=== PATIENT | female | born 2000 | race African-American/Black ===

== ENCOUNTER 2018-05-27 09:17 | Emergency (ER) | payer SELFPAY ==
[2018-05-27] MEDS ORDERED: NA CHLORIDE 0.9% 1,000 ML ONE (10:22)
[2018-05-27 10:34] LABS: Potassium 3.6 mmol/L (3.5-5.1)
[2018-05-27 10:37] LABS: Absolute Lymphocytes (CBC) 1.2 K/uL (0.7-4.9); Absolute Monocytes 0.5 K/uL (0.1-1.3); Absolute Neutrophil 3.1 K/uL (1.8-8.0); Basophils % 0.5 % (0-1.3); Eosinophils % 0.6 % (0-4.4); Hematocrit 39.1 % (36.0-45.0); Lymphocytes % 24.4 % (15.3-44.8); MPV 8.4 fL (7.6-11.3); Monocytes % 11.2 % (3.3-12.3); RBC Red Blood Cell Count 4.64 M/uL (3.86-4.86)
--- NOTE | 2018-05-27 11:17 | ER ---
Nurse's Notes 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 Transition of bp care: patient was not received from another setting of care. Onset of symptoms was May 27, 2018 at 09:00. Risk Assessment: Do you want to hurt yourself or someone else? Patient reports no desire to harm self or others. Initial Sepsis Screen: Does the patient meet any 2 criteria? No. Patient's initial sepsis screen is negative. Does the patient have a suspected source of infection? No. Patient's initial sepsis screen is negative. Care prior to arrival: Glucose check: 128. 09:28 Method Of Arrival: EMS: [facility] bp 09:28 Acuity: ANGELICA 3 bp Triage Assessment: :31 General: Appears in no apparent distress. comfortable, slender, Behavior is calm, bp cooperative, appropriate for age. Pain: Denies pain. EENT: No deficits noted. Neuro: Level of Consciousness is awake, alert, obeys commands, Oriented to person, place, time, situation, Appropriate for age Reports a syncopal episode. Cardiovascular: No deficits noted. Respiratory: Airway is patent Respiratory effort is even, unlabored, Respiratory pattern is regular, symmetrical. GI: No signs and/or symptoms were reported involving the gastrointestinal system. : No signs and/or symptoms were reported regarding the genitourinary system. Derm: No deficits noted. Musculoskeletal: Circulation, motion, and sensation intact. Range of motion: intact in all extremities. 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 - Social history:: Smoking status: Patient/guardian denies using tobacco. - Ebola Screening: : Patient negative for fever greater than or equal to 101.5 degrees Fahrenheit, and additional compatible Ebola Virus Disease symptoms Patient denies exposure to infectious person Patient denies travel to an Ebola-affected area in the 21 days before illness onset No symptoms or risks identified at this time. Screenin:34 Abuse screen: Denies threats or abuse. Denies injuries from another. Nutritional bp screening: No deficits noted. Tuberculosis screening: No symptoms or risk factors identified. Fall Risk Fall in past 12 months (25 points). No secondary diagnosis (0 pts). No IV (0 pts). Ambulatory Aid- None/Bed Rest/Nurse Assist (0 pts). Gait- Normal/Bed Rest/Wheelchair (0 pts) Mental Status- Oriented to own ability (0 pts). Total Paulino Fall Scale indicates Low Risk Score (25-44 pts). Fall prevention measures have been instituted. Side Rails Up X 2 Placed close to Nursing Station Frequent Obs/Assesments occuring Family Present and informed to notify staff if they need to leave bedside As available Patient and Family Educated on Fall Prevention Program and strategies. Assessment: 09:34 General: SEE TRIAGE NOTE. PT DENIES PAIN OR TRAUMA. bp 10:30 Reassessment: IVF INFUSING. PT DENIES ACUTE S/S AT THIS TIME. bp Vital Signs: 09:31 BP 105 / 87; Pulse 80; Resp 14; Temp 98; Pulse Ox 100% ; Weight 67.13 kg; Height 5 ft. bp 11 in. (180.34 cm); 10:03 BP 100 / 66 Supine; Pulse 67; Resp 16; Pulse Ox 100% on R/A; dh3 10:05 BP 110 / 82 Sitting; Pulse 80; Resp 17; Pulse Ox 98% on R/A; dh3 10:07 BP 113 / 83 Standing; Pulse 86; Resp 18; Pulse Ox 100% on R/A; dh3 10:29 BP 113 / 83; Pulse 71; Resp 14; Pulse Ox 100% ; bp 09:31 Body Mass Index 20.64 (67.13 kg, 180.34 cm) bp ED Course: 09:28 Patient arrived in ED. bp 09:30 Triage completed. bp 09:31 Arm band placed on right wrist. bp 09:33 Cholo Vázquez PA is PHCP. jr8 09:33 Maximiliano Olivo MD is Attending Physician. jr8 09:34 Patient has correct armband on for positive identification. Fall risk band placed. Bed bp in low position. Call light in reach. Side rails up X2. 10:01 Initial lab(s) drawn, by me, sent to lab. Inserted saline lock: 22 gauge in right [facility] antecubital area, using aseptic technique. Blood collected. 10:04 EKG done, by information technology internship. reviewed by Cholo BEE. at1 10:08 Ollie Maria, RN is Primary Nurse. bp 11:24 Urine collected: clean catch specimen, quynh colored. [facility] 11:25 No provider procedures requiring assistance completed. IV discontinued, intact, jl7 bleeding controlled, No redness/swelling at site. Pressure dressing applied. Administered Medications: 10:00 Drug: NS 0.9% 1000 ml Route: IV; Rate: 1000 ml; Site: right antecubital; bp Point of Care Testing: Blood Glucose: 09:31 Blood Glucose: 128 mg/dL; bp Ranges: Outcome: 11:16 Discharge ordered by . asa 11:25 Discharged to home ambulatory. 7 11:25 Condition: stable 11:25 Discharge instructions given to patient, family, Instructed on discharge instructions, follow up and referral plans. Demonstrated understanding of instructions, follow-up care. 11:26 Patient left the ED. jl7 Signatures: Cholo Vázquez PA PA jr8 Umu Dacosta, fbi profiler EKG Tat1 Jonah Fine, RN RN jl7 Magda Mitchell [facility] Ollie Maria, RN RN bp
--- NOTE | 2018-05-27 11:18 | EDPHYS ---
Physician Documentation [facility] Name: Isi Fry Age: 17 yrs Sex: Female : 2000 Arrival Date: 05/27/2018 Time: 09:28 Bed 8 Private MD: ED Physician Maximiliano Olivo HPI: 05/27 09:44 This 17 yrs old Female presents to ER via EMS with complaints of Syncope. jr8 09:44 The patient has experienced syncope. Onset: The symptoms/episode began/occurred jr8 acutely, today. Duration: This was a single episode. Context: the episode(s) was witnessed, by co-worker(s), occurred at work, occurred while the patient was walking, Just prior to the episode the patient experienced dizziness, lightheadedness. Associated injury: The patient did not suffer any apparent associated injury. Associated signs and symptoms: Pertinent positives: vaginal bleeding. Current symptoms: Currently, the patient is not experiencing any symptoms. The patient has not experienced similar symptoms in the past. The patient has not recently seen a physician. Patient approximately 8 weeks . Recent diagnosis of UTI. Has had mild spotting because of it. Was at work today and got up to move around. Became dizzy and then passed out. Lasted only for a few seconds. Brought in by EMS at that time. Currently without any complaint . 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 - Social history:: Smoking status: Patient/guardian denies using tobacco. - Ebola Screening: : Patient negative for fever greater than or equal to 101.5 degrees Fahrenheit, and additional compatible Ebola Virus Disease symptoms Patient denies exposure to infectious person Patient denies travel to an Ebola-affected area in the 21 days before illness onset No symptoms or risks identified at this time. ROS: 11:14 Eyes: Negative for injury, pain, redness, and discharge, ENT: Negative for injury, jr8 pain, and discharge, Neck: Negative for injury, pain, and swelling, Cardiovascular: Negative for chest pain, palpitations, and edema, Respiratory: Negative for shortness of breath, cough, wheezing, and pleuritic chest pain, Abdomen/GI: Negative for abdominal pain, nausea, vomiting, diarrhea, and constipation, Back: Negative for injury and pain, MS/Extremity: Negative for injury and deformity, Skin: Negative for injury, rash, and discoloration. 11:14 Neuro: Positive for dizziness, syncope, Negative for altered mental status, gait disturbance, headache, numbness, seizure activity, speech changes, tingling, tinnitus, tremor, visual changes, weakness. Exam: 11:14 Eyes: Pupils equal round and reactive to light, extra-ocular motions intact. Lids and jr8 lashes normal. Conjunctiva and sclera are non-icteric and not injected. Cornea within normal limits. Periorbital areas with no swelling, redness, or edema. ENT: Nares patent. No nasal discharge, no septal abnormalities noted. Tympanic membranes are normal and external auditory canals are clear. Oropharynx with no redness, swelling, or masses, exudates, or evidence of obstruction, uvula midline. Mucous membranes moist. Neck: Trachea midline, no thyromegaly or masses palpated, and no cervical lymphadenopathy. Supple, full range of motion without nuchal rigidity, or vertebral point tenderness. No Meningismus. Cardiovascular: Regular rate and rhythm with a normal S1 and S2. No gallops, murmurs, or rubs. Normal PMI, no JVD. No pulse deficits. Respiratory: Lungs have equal breath sounds bilaterally, clear to auscultation and percussion. No rales, rhonchi or wheezes noted. No increased work of breathing, no retractions or nasal flaring. Abdomen/GI: Soft, non-tender, with normal bowel sounds. No distension or tympany. No guarding or rebound. No evidence of tenderness throughout. Back: No spinal tenderness. No costovertebral tenderness. Full range of motion. Skin: Warm, dry with normal turgor. Normal color with no rashes, no lesions, and no evidence of cellulitis. MS/ Extremity: Pulses equal, no cyanosis. Neurovascular intact. Full, normal range of motion. Neuro: Awake and alert, GCS 15, oriented to person, place, time, and situation. Cranial nerves II-XII grossly intact. Motor strength 5/5 in all extremities. Sensory grossly intact. Cerebellar exam normal. Normal gait. Vital Signs: 09:31 BP 105 / 87; Pulse 80; Resp 14; Temp 98; Pulse Ox 100% ; Weight 67.13 kg; Height 5 ft. bp 11 in. (180.34 cm); 10:03 BP 100 / 66 Supine; Pulse 67; Resp 16; Pulse Ox 100% on R/A; dh3 10:05 BP 110 / 82 Sitting; Pulse 80; Resp 17; Pulse Ox 98% on R/A; dh3 10:07 BP 113 / 83 Standing; Pulse 86; Resp 18; Pulse Ox 100% on R/A; dh3 10:29 BP 113 / 83; Pulse 71; Resp 14; Pulse Ox 100% ; bp 09:31 Body Mass Index 20.64 (67.13 kg, 180.34 cm) bp MDM: 09:33 Patient medically screened. jr8 11:14 Differential Diagnosis: cardiac arrhythmia, cerebrovascular accident, drug effect, jr8 emotional response, idiopathic syncope, , seizure, transient ischemic attack, vasovagal episode. Data reviewed: vital signs, nurses notes, lab test result(s), EKG. Data interpreted: Pulse oximetry: on room air is 100 %. Interpretation: normal. Counseling: I had a detailed discussion with the patient and/or guardian regarding: the historical points, exam findings, and any diagnostic results supporting the discharge/admit diagnosis, lab results, the need for outpatient follow up, a family practitioner, an OB/Gyne specialist, to return to the emergency department if symptoms worsen or persist or if there are any questions or concerns that arise at home. Response to treatment: the patient's symptoms have resolved after treatment, patient is well hydrated. 05/27 09:47 Order name: CBC with Diff; Complete Time: 11:10 05/27 09:47 Order name: Basic Metabolic Panel; Complete Time: 11:10 05/27 09:47 Order name: EKG; Complete Time: 09:48 05/27 11:22 Order name: Urine Dipstick--Ancillary (enter results) eb 05/27 09:47 Order name: Urine Test (obtain specimen); Complete Time: 11:25 05/27 09:47 Order name: Urine Dipstick-Ancillary (obtain specimen); Complete Time: 11:25 05/27 09:47 Order name: EKG - Nurse/Tech; Complete Time: 10:08 05/27 09:47 Order name: Orthostatics; Complete Time: : Administered Medications: 10:00 Drug: NS 0.9% 1000 ml Route: IV; Rate: 1000 ml; Site: right antecubital; bp Point of Care Testing: Blood Glucose: 09:31 Blood Glucose: 128 mg/dL; bp Ranges: Critical Glucose Levels:Adult <50 mg/dl or >400 mg/dl <40 mg/dl or >180 mg/dl Disposition: 05/27/18 11:16 Discharged to Home. Impression: Syncope and collapse. - Condition is Stable. - Discharge Instructions: Syncope. - Medication Reconciliation Form, Thank You Letter, Antibiotic Education, Prescription Opioid Use form. - Follow up: Private Physician; When: 1 - 2 days; Reason: Recheck today's complaints, Continuance of care, Re-evaluation by your physician. - Problem is new. - Symptoms have improved. Signatures: Dispatcher [employer] EDMS Cholo Vázquez PA PA jr8 Jonah Fine RN RN jl7 Ollie Maria RN RN bp Corrections: (The following items were deleted from the chart) 11:26 11:16 05/27/2018 11:16 Discharged to Home. Impression: Syncope and collapse. Condition jl7 is Stable. Forms are Medication Reconciliation Form, Thank You Letter, Antibiotic Education, Prescription Opioid Use. Follow up: Private Physician; When: 1 - 2 days; Reason: Recheck today's complaints, Continuance of care, Re-evaluation by your physician. Problem is new. Symptoms have improved. jr8
[2018-05-27 11:34] LABS: Urine Blood 2+ (NEG); Urine Glucose NEGATIVE (NEG); Urine Protein NEGATIVE (NEG)
--- NOTE | 2018-05-27 21:39 | EKG ---
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
== END 2018-05-27 11:26 | disposition home or self-care (01) ==
LOC: ER 09:17
DX: R55 Syncope and collapse (principal); Z3A.08 8 weeks gestation of pregnancy
CPT/HCPCS: 36415; 80048; 81003; 81025; 85025; 93005; 99284; J7030

== ENCOUNTER 2021-08-15 16:43 | Emergency (ER) | payer OTHER ==
--- OUTSIDE RECORDS SUMMARY | 2021-08-15 16:45 | XMS REPORT | Continuity of Care Document ---
:2000 Author Organization [facility] t Address [address] [place] [id number] Care Team Providers Name Role Phone Gino ALICIA, C Primary Care Physician Enmanuel RN, L Attending Clinician Unavailable Payers Payer Name Policy Type Policy Number Effective Date Expiration Date S ource Problems Condition Condition Condition Status Onset Resolution Last Treating Co mments Source Name Details Category Date Date Treatment Clinician Date Other Other Disease Active Univers general general 6-09 ity of counseling [place] and advice and advice 00 Hi dical for for Branch contracept contracept chilo chilo management management Routine Routine Disease Active Univers 5-18 it y of follow-up follow-up 00:00: Wade donovan 00 Medical Branch Anemia, Anemia, Disease Active 2020- Univers 4-27 it y of 00:00: [place] 00 Medical Branch Fibroadeno Fibroadeno Disease Active Overview : Univers ma of ma of 9-19 Formattin ity of breast, breast, 00:00: g of this [place] left left 00 note Medical might be Branch different from the original. See usg report Lump or Lump or Disease Active Univers mass in mass in 7-26 ity of breast breast 00:00: [place] 00 Medical Branch Allergies, Adverse Reactions, Alerts Allergy Allergy Status Severity Reaction(s) Onset Inactive Treating Comm ents Source Name Type Date Date Clinician No Known DA Active U 2017-04 [facility] All[facility]ie 0-26 [place] [facility] Social History Social Habit Start Date Stop Date Quantity Comments Source History SDOH University o f Alcohol Frequency [place] M edical Branch History SDOH University o f Alcohol Std [place] Medical Drinks Branch History SDOH University o f Alcohol Binge [place] [facility] al Branch Alcohol intake 2021-03-06 2021-03-06 Current University of 00:00:00 00:00:00 non-drinker of [facility] alcohol Branch (finding) Alcohol Comment 2019-09-13 2019-09-13 socially Universit y of 00:00:00 00:00:00 [facility] Tobacco use and 2018-05-18 2018-05-18 Never used Universit y of exposure 00:00:00 00:00:00 [facility] Sex Assigned At [birth year] Universit y of 00:00:00 00:00:00 [facility] Smoking Status Start Date Stop Date Source Never smoker [facility] Medications Ordered Filled Start Stop Current Ordering Indication Dosage Frequency Signature Comments Components Source Medication Medication Date Date Medication? Clinician (SIG) Name Name naya 2020-04 Yes [id number] 1{tbl} Take 1 Univers ne 0.35 mg 2-01 tablet by ity of tablet 00:00: mouth [place] 00 daily. Medical Branch Immunizations Ordered Immunization Filled Immunization Date Status Commen ts Source Name Name TDAP 2019-05-18 Completed University of 00:00:00 [facility] Meningococcal 2016-01-18 Completed University of Polysaccharide 00:00:00 [facility] (groups A, C, Y and Branc h W-135) conjugate vaccine (MCV4P) Meningococcal 2010-11-18 Completed University of Polysaccharide 00:00:00 [facility]masz (groups A, C, Y and Branc h W-135) conjugate vaccine (MCV4P) TDAP 2010-11-18 Completed University of 00:00:00 [facility] Varicella 2010-11-18 Completed University of (varivax)(chicken 00:00:00 [facility] edical pox) Branch MMR 2003-03-17 Completed University 00:00:00 [facility] MMR 1999-09-18 Completed University 00:00:00 [facility] Varicella 1999-09-18 Completed [facility] (varivax)(chicken 00:00:00 [facility] edical pox) Branch Procedures This patient has no known procedures. Encounters Start End Encounter Admission Attending Care Care Encounter Source Date/Time Date/Time Type Type Clinicians Facility Department ID 2021-07-05 2021-07-05 Telephone Enmanuel PRYOR [id number] [facility] 00:00:00 00:00:00 , Mihaela MYERS [id number] Red [id number] Wade donovan [id number] [facility] 086 Branch Results This patient has no known results.
[2021-08-15 17:25] LABS: Urine Blood Trace-intact (Negative); Urine Glucose Negative (Negative); Urine Protein Trace (Negative); Urine Specific Gravity 1.025 (1.005-1.030); Urine pH 5.5 (5.0-7.0)
[2021-08-15 17:42] LABS: Urine Specific Gravity/Preg 1.025 (1.005-1.030)
[2021-08-15] MEDS ORDERED: MORPHINE 4 MG/ML SYR ONE (17:43)
[2021-08-15 17:44] LABS: Absolute Lymphocytes (CBC) 1.1 K/uL (0.7-4.9); Hematocrit 40.4 % (36.0-45.0); Lymphocytes % 13.1 % (15.3-44.8); MPV 8.3 fL (7.6-11.3)
[2021-08-15] MEDS ORDERED: ONDANSETRON 4 MG/2 ML VIAL ONE (17:44)
[2021-08-15] MEDS ORDERED: Ringers Lactate 1,000 ML IV ONE (17:44)
[2021-08-15 18:00] LABS: Albumin 3.9 g/dL (3.4-5.0); Bilirubin Total 1.1 mg/dL (0.2-1.0); Potassium 3.7 mmol/L (3.5-5.1); Protein, Total 8.1 g/dL (6.4-8.2)
--- NOTE | 2021-08-15 18:46 | RAD REPORT ---
EXAM DESCRIPTION: CT - Abdomen Pelvis W Contrast - 08/15/2021 6:29 pm CLINICAL HISTORY: Abdominal pain/right lower quadrant pain COMPARISON: none. TECHNIQUE: Computed axial tomography of the abdomen pelvis was obtained. 100 cc Isovue-300 was admin istered intravenously. Oral contrast was not requested which limits evaluation of bowel and appendix. All CT scans are performed using dose optimization technique as appropriate and may include automated exposure control or mA/KV adjustment according to patient size. FINDINGS: Small low-density lesion within the liver too small to characterize by CT criteria Spleen, pancreas, adrenal and left kidney appear unremarkable. Several small low-density areas within the right kidney extending to the periphery. Small right renal cyst There is no evidence of diverticulitis. Limited evaluation of the appendix due to the lack of oral contrast Fluid within nondilated small bowel. An irregularly-shaped 12 millimeter right ovarian follicle likel y has recently ruptured. Minimal amount of free fluid. IMPRESSION: Several small low-density areas within the right kidney extending to the periphery may i ndicate mild pyelonephritis and should be correlated clinically and with appropriate lab values
--- NOTE | 2021-08-15 19:25 | RAD REPORT ---
EXAM DESCRIPTION: US - Abdomen Exam Limited - 08/15/2021 7:09 pm CLINICAL HISTORY: Abdominal pain. FINDINGS: The gallbladder wall is not thickened. A gallstone is not seen. Small amount of gallbladder sludge The biliary tree is normal caliber. IMPRESSION: Small amount of gallbladder sludge
[2021-08-15] MEDS ORDERED: CEFTRIAXONE 2000 MG/VIAL ONE (19:32)
--- NOTE | 2021-08-15 19:48 | EDPHYS ---
Physician Documentation [facility] Name: Isi Fry Age: 20 yrs Sex: Female : 2000 Arrival Date: 08/15/2021 Time: 16:46 Bed 5 Private MD: ED Physician Josué Moise HPI: 08/15 19:43 This 20 yrs old Black Female presents to ER via Ambulatory with complaints of Abdominal jmm Pain, Back Pain. 19:43 The patient presents with abdominal pain. Onset: The symptoms/episode began/occurred jmm gradually, 2 day(s) ago. The symptoms radiate to right back. Associated signs and symptoms: Pertinent positives: nausea. The symptoms are described as achy. This is a 20 year old female with no chronic medical conditions that presents to the ED with complaints of right upper abdominal pain which radiates to the back. Denies vomiting but states having some nausea. Denies diarrhea. . 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 - Social history:: Smoking status: Patient denies any tobacco usage or history of. ROS: 19:43 Cardiovascular: Negative for chest pain, palpitations, and edema, Respiratory: Negative jmm for shortness of breath, cough, wheezing, and pleuritic chest pain. 19:43 Constitutional: Positive for body aches, chills. 19:43 Abdomen/GI: Positive for abdominal pain, nausea. 19:43 All other systems are negative. Exam: 19:43 Constitutional: This is a well developed, well nourished patient who is awake, alert, jmm and in no acute distress. Head/Face: atraumatic. Eyes: EOMI, no conjunctival erythema appreciated ENT: Moist Mucus Membranes Neck: Trachea midline, Supple Chest/axilla: Normal chest wall appearance and motion. Cardiovascular: Regular rate and rhythm. No edema appreciated Respiratory: Normal respirations, no respiratory distress appreciated 19:43 Skin: General appearance color normal MS/ Extremity: Moves all extremities, no obvious deformities appreciated, no edema noted to the lower extremities Neuro: Awake and alert Psych: Behavior is normal, Mood is normal, Patient is cooperative and pleasant 19:43 Abdomen/GI: Inspection: abdomen appears normal, Bowel sounds: normal, Palpation: soft, mild abdominal tenderness, in the right upper quadrant. 19:43 Back: CVA tenderness, that is moderate, is noted on the right. Vital Signs: 17:08 BP 115 / 88; Pulse 105; Resp 16; Temp 100.8; Pulse Ox 100% on R/A; Weight 70.31 kg; iw Height 5 ft. 10 in. (177.80 cm); Pain 8/10; 19:58 BP 112 / 74; Pulse 71; Resp 18 S; Pulse Ox 100% on R/A; as6 17:08 Body Mass Index 22.24 (70.31 kg, 177.80 cm) iw MDM: 17:17 Patient medically screened. [facility] 19:46 Data reviewed: vital signs, nurses notes. Counseling: I had a detailed discussion with francheska the patient and/or guardian regarding: the historical points, exam findings, and any diagnostic results supporting the discharge/admit diagnosis, lab results, radiology results, the need for outpatient follow up, to return to the emergency department if symptoms worsen or persist or if there are any questions or concerns that arise at home. ED course: Patient is alert and non toxic in appearance in the ED. No signs of sepsis. CT/ua concerning for pyelonephritis. Will treat with oral abx. patient otherwise given strict return precautions. patient understood and agrees with the plan of care. . 08/15 17:21 Order name: CBC with Diff; Complete Time: 18:01 [facility] 08/15 17:21 Order name: CMP; Complete Time: 18:01 [facility] 08/15 17:21 Order name: Lipase; Complete Time: 18:01 [facility] 08/15 17:25 Order name: Urine Dipstick-Ancillary; Complete Time: 17:26 [facility] 08/15 17:33 Order name: Urine --Ancillary (enter results); Complete Time: 17:49 [facility] 08/15 18:04 Order name: CT Abd/Pelvis - IV Contrast Only; Complete Time: 18:49 [facility] 08/15 17:21 Order name: IV Saline Lock; Complete Time: 17:37 [facility] 08/15 17:21 Order name: Labs collected and sent; Complete Time: 17:38 [facility] 08/15 17:21 Order name: Urine Dipstick-Ancillary (obtain specimen); Complete Time: 17:23 [facility] 08/15 18:47 Order name: US Abdomen Limited; Complete Time: 19:35 [facility] 08/15 17:21 Order name: Urine Test (obtain specimen); Complete Time: 17:32 [facility] Administered Medications: 17:40 Drug: Zofran (Ondansetron) 4 mg Route: IVP; Site: right antecubital; 6 19:59 Follow up: Response: No adverse reaction as6 17:40 Drug: morphine 4 mg Route: IVP; Site: right antecubital; 6 19:59 Follow up: Response: No adverse reaction; RASS: Alert and Calm (0) as6 17:45 Drug: NS 0.9% 1000 ml Route: IV; Rate: 1 bolus; Site: right antecubital; 6 19:59 Follow up: Response: No adverse reaction; IV Status: Completed infusion; IV Intake: as6 1000ml 19:58 Drug: Rocephin (cefTRIAXone) 2 grams Route: IV; Rate: calculated rate; Site: right as6 forearm; 19:59 Follow up: Response: No adverse reaction; IV Status: Completed infusion; IV Intake: [id number] Disposition: 22:19 Co-signature as Attending Physician, Josué BENTLEY was immediately available on-site ms3 in the Emergency Department for consultation in the care of the patient.. Disposition Summary: 08/15/21 19:47 Discharge Ordered Location: Home [facility] Condition: Stable [facility] Diagnosis - Pyelonephritis [facility] Followup: [facility] - With: Private Physician - When: 2 - 3 days - Reason: Recheck today's complaints, Continuance of care, Re-evaluation by your physician Discharge Instructions: - Discharge Summary Sheet [facility] - Pyelonephritis, Adult [facility] Forms: - Medication Reconciliation Form [facility] - Thank You Letter [facility] - Antibiotic Education [facility] - Prescription Opioid Use [facility] Prescriptions: - cefpodoxime 200 mg Oral Tablet - take 1 tablet by ORAL route every 12 hours for 10 days with food; 20 tablet; [facility] Refills: 0, Product Selection Permitted - ondansetron 4 mg Oral tablet,disintegrating - take 1 tablet by ORAL route every 4-6 hours As needed; 20 tablet; Refills: 0, jmm Product Selection Permitted - Ultracet 37.5-325 mg Oral Tablet - take 1 tablet by ORAL route every 6 hours - for up to 5 days; do not exceed 8 jmm tablets per day.; 12 tablet; Refills: 0, Product Selection Permitted Signatures: Dispatcher [employer] Jeff Huizar PA PA jmm Williams, Irene, RN RN iw Josué Moise, DO ms3 Yonny Cardenas RN RN as6 Flaquita Live RN RN jh6
--- NOTE | 2021-08-15 19:48 | ER ---
Nurse's Notes [facility] Name: Isi Fry Age: 20 yrs Sex: Female : 2000 Arrival Date: 08/15/2021 Time: 16:46 Bed 5 Private MD: Diagnosis: Pyelonephritis Presentation: 08/15 17:08 Chief complaint: Patient states: RUQ pain, sharp radiates to back, started a couple iw days ago , denies urinary symptoms, denies n/v/d. Coronavirus screen: At this time, the client does not indicate any symptoms associated with coronavirus-19. Ebola Screen: Patient negative for fever greater than or equal to 101.5 degrees Fahrenheit, and additional compatible Ebola Virus Disease symptoms Patient denies exposure to infectious person. Patient denies travel to an Ebola-affected area in the 21 days before illness onset. No symptoms or risks identified at this time. Initial Sepsis Screen: Does the patient meet any 2 criteria? No. Patient's initial sepsis screen is negative. Does the patient have a suspected source of infection? No. Patient's initial sepsis screen is negative. Risk Assessment: Do you want to hurt yourself or someone else? Patient reports no desire to harm self or others. Onset of symptoms was August 13, 2021. 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 - Social history:: Smoking status: Patient denies any tobacco usage or history of. Screenin:23 Abuse screen: Denies threats or abuse. Nutritional screening: No deficits noted. vg1 Tuberculosis screening: No symptoms or risk factors identified. Fall Risk No fall in past 12 months (0 pts). No secondary diagnosis (0 pts). IV access (20 points). Ambulatory Aid- None/Bed Rest/Nurse Assist (0 pts). Gait- Normal/Bed Rest/Wheelchair (0 pts) Mental Status- Oriented to own ability (0 pts). Total Paulino Fall Scale indicates No Risk (0-24 pts). Assessment: 17:25 General: Appears uncomfortable, Behavior is calm, cooperative. Pain: Complains of pain vg1 in right upper quadrant and right lower quadrant Pain currently is 8 out of 10 on a pain scale. Pain began 2-3 days ago. Neuro: Level of Consciousness is awake, alert, obeys commands, Oriented to person, place, time, situation. Cardiovascular: Patient's skin is warm and dry. Respiratory: Airway is patent Respiratory effort is even, unlabored. GI: Abdomen is flat, non-distended, Bowel sounds present X 4 quads. Abdomen is tender to palpation in right upper quadrant and right lower quadrant Patient currently denies diarrhea, nausea, vomiting. : Denies burning with urination, urinary frequency. EENT: No signs and/or symptoms were reported regarding the EENT system. Derm: Skin is intact, is healthy with good turgor. Musculoskeletal: Circulation, motion, and sensation intact. 18:40 Reassessment: Patient appears in no apparent distress at this time. No changes from vg1 previously documented assessment. Patient and/or family updated on plan of care and expected duration. Pain level reassessed. Patient is alert, oriented x 3, equal unlabored respirations, skin warm/dry/pink. Vital Signs: 17:08 BP 115 / 88; Pulse 105; Resp 16; Temp 100.8; Pulse Ox 100% on R/A; Weight 70.31 kg; iw Height 5 ft. 10 in. (177.80 cm); Pain 8/10; 19:58 BP 112 / 74; Pulse 71; Resp 18 S; Pulse Ox 100% on R/A; as6 17:08 Body Mass Index 22.24 (70.31 kg, 177.80 cm) iw ED Course: 16:46 Patient arrived in ED. mr 17:05 Jeff Still PA is PHCP. jmm 17:05 Josué Moise DO is Attending Physician. [facility] 17:09 Triage completed. iw 17:10 Arm band placed on. iw 17:21 Felicitas Abebe, RN is Primary Nurse. vg1 17:31 Patient has correct armband on for positive identification. Bed in low position. Call mh5 light in reach. Side rails up X 1. Warm blanket given. Pulse ox on. NIBP on. 17:38 CBC with Diff Sent. mb7 17:38 CMP Sent. mb7 17:38 Lipase Sent. mb7 17:38 Inserted saline lock: 20 gauge in right forearm, using aseptic technique. mb7 18:23 No provider procedures requiring assistance completed. vg1 18:31 CT Abd/Pelvis - IV Contrast Only In Process Unspecified. EDMS 19:11 US Abdomen Limited In Process Unspecified. EDMS 19:22 Primary Nurse role handed off by Felicitas Abebe, ROBERTO mw2 19:22 Lisbet Juarez, ROBERTO is Primary Nurse. kd3 20:06 IV discontinued, intact, bleeding controlled, No redness/swelling at site. Pressure as6 dressing applied. Administered Medications: 17:40 Drug: Zofran (Ondansetron) 4 mg Route: IVP; Site: right antecubital; jh6 19:59 Follow up: Response: No adverse reaction as6 17:40 Drug: morphine 4 mg Route: IVP; Site: right antecubital; jh6 19:59 Follow up: Response: No adverse reaction; RASS: Alert and Calm (0) as6 17:45 Drug: NS 0.9% 1000 ml Route: IV; Rate: 1 bolus; Site: right antecubital; jh6 19:59 Follow up: Response: No adverse reaction; IV Status: Completed infusion; IV Intake: as6 1000ml 19:58 Drug: Rocephin (cefTRIAXone) 2 grams Route: IV; Rate: calculated rate; Site: right as6 forearm; 19:59 Follow up: Response: No adverse reaction; IV Status: Completed infusion; IV Intake: [id number] Medication: 18:23 VIS not applicable for this client. vg1 Intake: 19:59 IV: 1000ml; Total: 1000ml. as6 19:59 IV: 10ml; Total: 1010ml. as6 Outcome: 19:47 Discharge ordered by . francheska 20:02 Discharged to home ambulatory. as6 20:02 Condition: stable 20:02 Discharge instructions given to patient, Instructed on discharge instructions, follow up and referral plans. medication usage, Demonstrated understanding of instructions, follow-up care, medications, Prescriptions given X 3. 20:06 Patient left the ED. as6 Signatures: Dispatcher [employer] EDMS Jeff Still PA PA jmm Rivera, Mary mr Williams, Irene, RN RN Susana Coon 5 Rob, Marjorie mw2 Felicitas Abebe, RN RN vg1 Yonny Cardenas, RN RN as6 Lisbet Juarez, RN RN kd3 Flaquita Live, RN RN jh6 Brenda, Ruthy mb7 Corrections: (The following items were deleted from the chart) 18:40 18:23 General: Appears uncomfortable, Behavior is calm, cooperative, vg1 vg1 18:40 18:23 Pain: Complains of pain in right upper quadrant and right lower quadrant Pain vg1 currently is 8 out of 10 on a pain scale. Pain began 2-3 days ago. vg1 18:40 18:23 Neuro: Level of Consciousness is awake, alert, obeys commands, Oriented to vg1 person, place, time, situation, vg1 18:40 18:23 Cardiovascular: Patient's skin is warm and dry. vg1 vg1 18:40 18:23 Respiratory: Airway is patent Respiratory effort is even, unlabored, vg1 vg1 18:40 18:23 GI: Abdomen is flat, non-distended, Bowel sounds present X 4 quads. Abdomen is vg1 tender to palpation in right upper quadrant and right lower quadrant Patient currently denies diarrhea, nausea, vomiting, vg1 18:40 18:23 : Denies burning with urination, urinary frequency, vg1 vg1 18:40 18:23 EENT: No signs and/or symptoms were reported regarding the EENT system. vg1 vg1 18:40 18:23 Derm: Skin is intact, is healthy with good turgor, vg1 vg1 18:40 18:23 Musculoskeletal: Circulation, motion, and sensation intact. vg1 vg1
[2021-08-16 02:11] VITALS: TEMP 100.8; O2SAT 100
[2021-08-16 02:12] VITALS: BP 112/74
== END 2021-08-15 20:06 | disposition home or self-care (01) ==
LOC: ER 16:43
DX: N12 Tubulo-interstitial nephritis, not specified as acute or chronic (principal); R11.0 Nausea
CPT/HCPCS: 85025; 36415; 81025; 81003; 83690; 80053; 74177; 76705; 99284; Q9967; J7120; J2405; J0696

== ENCOUNTER 2023-02-06 07:50 | Emergency (ER) | payer SELFPAY ==
--- OUTSIDE RECORDS SUMMARY | 2023-02-06 07:53 | XMS REPORT | Continuity of Care Document ---
:2000 Author Organization [facility] t Address [address] [place] [address] Care Team Providers Name Role Phone Dariela Abraham Primary Care Physician Enmanuel MEJIA, Mihaela Michel Attending Clinician Unavailable Provider, Jack Temp Attending Clinician Unavailable Diana Higuera Attending Clinician [phone] DIANA JOINER Attending Clinician Unavailable Doctor Unassigned, [place] Attending Clinician Unavailable Dariela Abraham Attending Clinician [phone] DARIELA CHARLES Attending Clinician Unavailable Payers Payer Name Policy Type Policy Number Effective Date Expiration Date Stacey machado [facility] [id number] 2018 00:00:00 Problems Condition Condition Condition Status Onset Resolution Last Treating Co mments Source Name Details Category Date Date Treatment Clinician Date Other Other Disease Active 2019-0 Univers general general 6-09 [place] of counseling [place] advice and advice 00 [place] dical for for Branch contracept contracept chilo chilo management management Routine Routine Disease Active Univers 5-18 [place] of follow[place] [facility] [place] Anemia, Anemia, Disease Active Univers 4-27 it y of 00:00: [place] 00 [facility] Branch Fibroadeno Fibroadeno Disease Active Overview : Univers ma of ma of 9-19 Formattin ity of breast, breast, 00:00: g of this [place] left left 00 note Medical might be Branch different from the original. See usg report Lump or Lump or Disease Active [facility] mass in mass in - ity of breast breast 00:00: [address] Branch Allergies, Adverse Reactions, Alerts Allergy Allergy Status Severity Reaction(s) Onset Inactive Treating Comm ents Source Name Type Date Date Clinician No Known DA Active U 2017-04 [facility] 0- [place] [facility] Social History Social Habit Start Date Stop Date Quantity Comments Source Sexual orientation Univer sity of [facility] History SDIL University o f Alcohol Frequency [facility] edical Branch History [facility] University o f Alcohol Std Drinks [facility] History [facility] o f Alcohol Binge [facility] al [place] Exposure to 2021-02-04 2021-03-06 Not sure University of SARS-CoV-2 (event) 00:00:00 10:05:00 [facility] Alcohol intake 2019-12-06 2019-12-06 Current University of 00:00:00 00:00:00 non-drinker of [facility] alcohol Branch (finding) History of Social 2019-09-13 2019-09-13 Univers ity of function 00:00:00 00:00:00 [facility] Alcohol Comment 2019-09-13 2019-09-13 socially Universit y of 00:00:00 00:00:00 [facility] Tobacco use and 2018-05-18 2018-05-18 Smokeless Universit y of exposure 00:00:00 00:00:00 tobacco non-user [facility] dical [place] Sex Assigned At [birth year] Universit y of 00:00:00 00:00:00 [facility] Smoking Status Start Date Stop Date Source Never smoked tobacco [facility] Medications Ordered Filled Start Stop Current Ordering Indication Dosage Frequency Signature Comments Components Source Medication Medication Date Date Medication? Clinician (SIG) Name Name naya 2020-04 Yes [id number] 1{tbl} Take 1 Univers ne 0.35 mg 2-01 tablet by ity of tablet 00:00: mouth [place] 00 daily. Medical Branch Immunizations Ordered Immunization Filled Date Status Comments Sour ce Name Immunization Name TDAP 2019-05-18 Completed University of 00:00:00 [facility] Meningococcal 2016-01-18 Completed University of Polysaccharide 00:00:00 [place] Medi tomasz (groups A, C, Y and Branc h W-135) conjugate vaccine (MCV4P) Meningococcal 2010-11-18 Completed University of Polysaccharide 00:00:00 [facility] tomasz (groups A, C, Y and Branc h W-135) conjugate vaccine (MCV4P) TDAP 2010-11-18 Completed University of 00:00:00 [facility] Varicella 2010-11-18 Completed University of (varivax)(chicken 00:00:00 [place] M edical pox) Branch MMR 2003-03-17 Completed University of 00:00:00 [facility] MMR 1999-09-18 Completed University of 00:00:00 [facility] Varicella 1999-09-18 Completed University of (varivax)(chicken 00:00:00 [facility] edical pox) Branch TDAP Unknown Completed [facility] Meningococcal Unknown Completed University Polysaccharide [facility] (groups A, C, Y and Branc h W-135) conjugate vaccine (MCV4P) Meningococcal Unknown Completed [facility] Polysaccharide [facility] (groups A, C, Y and Branc h W-135) conjugate vaccine (MCV4P) MMR Unknown Completed [facility] MMR Unknown Completed [facility] TDAP Unknown Completed [facility] Varicella Unknown Completed University of (varivax)(chicken [place] M edical pox) Branch Varicella Unknown Completed University of (varivax)(chicken [place] M edical pox) Branch Procedures This patient has no known procedures. Encounters Start End Encounter Admission Attending Care Care Encounter Source Date/Time Date/Time Type Type Clinicians Facility Department ID 2021-01-31 Outpatient [facility] [id number] Univers 19:01:45 ity of [facility] 2021-07-05 2021-07-05 Ole PRYOR [id number] Univers 00:00:00 00:00:00 Management , Mihaela L MYERS [id number] [id number] [phone] [place] [id number] [place] 2021-07-05 2021-07-05 Telephone Singer ROYA [id number] Univers 00:00:00 00:00:00 , Mihaela RICARDOY [id number] [id number] [phone] [place] [id number] [place] 2021-03-06 2021-03-06 Office Provider, Jack [facility] 1 [id number] Univers 09:22:40 10:40:49 Visit Diana Joiner LOW HEEL BUILDER [id number] ity of [facility] [id number] [place] as MATERNAL [phone] Med ical & CHILD [address] [place] [address] 2021-03-06 2021-03-06 [facility] [id number] Univers 09:15:00 10:40:49 DIANA vides [facility] 2021-03-06 2021-03-06 [facility] [id number] Univers 09:15:00 09:15:00 DIANA de la paz o [facility] 2021-03-06 2021-03-06 Telephone [facility] [id number] Univers 00:00:00 00:00:00 Diana Vides LOW HEEL BUILDER [id number] ity of [facility] [id number] [place] MATERNAL [phone] [facility] ical & CHILD [address] [place] [address] 2021-03-06 2021-03-06 Orders Doctor CARDENAS [id number] Univers 00:00:00 00:00:00 Only Unassigned, BHARATHI [id number] ity of [place] [facility] [id number] [place] as [phone] [facility] 009 Branch 2021-02-12 2021-02-12 Patient Gino [facility] [id number] Univers 00:00:00 00:00:00 Secure Msg Dariela C LOW HEEL BUILDER [id number] ity of [facility] [id number] [place] MATERNAL [phone] [facility] ical & CHILD [address] [place] [address] 2020-12-02 2020-12-02 Refill Gion, [facility] [id number] Univers 00:00:00 00:00:00 Dariela C LOW HEEL BUILDER [id number] ity of [facility] [id number] [place] MATERNAL [id number] [facility] ical & CHILD [address] [place] [address] 2019-12-06 2019-12-06 Outpatient R AKINSIPE, [facility] [id number] Univers 09:15:00 09:15:00 DARIELA ity o f [facility] 2019-09-13 2019-09-13 Outpatient R AKINSIPE, [facility] [id number] Univers 09:00:00 09:00:00 DARIELA ity o f [facility] 2019 2019 Outpatient R AKINSIPE, [facility] [id number] Univers 11:00:00 11:00:00 DARIELA ity o f [facility] 2019-08-11 2019-08-11 Outpatient R AKINSIPE, [facility] [id number] Univers 09:45:00 09:45:00 DARIELA ity o f [facility] 2019-08-02 2019-08-02 Outpatient R AKINSIPE, [facility] [id number] Univers 09:45:00 09:45:00 DARIELA ity o f [facility] 2019-07-26 2019-07-26 Outpatient R AKINSIPE, [facility] [id number] Univers 12:45:00 12:45:00 DARIELA ity o f [facility] 2019-07-19 2019-07-19 Outpatient R AKINSIPE, [facility] [id number] Univers 08:15:00 08:15:00 DARIELA ity o f [facility] 2019-07-13 2019-07-13 Outpatient R AKINSIPE, [facility] [id number] Univers 09:00:00 09:00:00 DARIELA de la paz o [facility] 2019-06-29 2019-06-29 [facility] [id number] Univers 09:15:00 09:15:00 DARIELA de la paz o [facility] 2019-06-15 2019-06-15 Outpatient R GINO, [facility] [id number] Univers 09:30:00 09:30:00 DARIELA de la paz o [facility] 2019-06-01 2019-06-01 Outpatient R GINO, [facility] [id number] Univers 09:15:00 09:15:00 [facility] [place] [facility] Results This patient has no known results.
--- NOTE | 2023-02-06 08:13 | EDPHYS ---
Physician Documentation [facility] Name: Isi Fry Age: 22 yrs Sex: Female : 2000 Arrival Date: 02/06/2023 Time: 07:50 Bed 14 Private MD: ED Physician Blaze Hogan HPI: 02/06 08:04 This 22 yrs old Black Female presents to ER via Ambulatory with complaints of Ear Pain. rn 08:04 The patient presents with a fullness, pain. The complaints affect the left ear. Onset: rn The symptoms/episode began/occurred this morning. Modifying factors: The symptoms are alleviated by nothing, the symptoms are aggravated by nothing. 08:06 Associated signs and symptoms: Pertinent negatives: fever, rhinorrhea, shortness of rn breath, sore throat, vertigo. Severity of symptoms: At their worst the symptoms were moderate in the emergency department the symptoms are unchanged. The patient has not experienced similar symptoms in the past. The patient has not recently seen a physician. Patient reports left ear pain and fullness that began this morning. No fever. No drainage. No trauma. Does not use Q-tips or clean ears. Reports decreased hearing on that side with muffled hearing. Historical: - Allergies: 07:59 No Known Allergies; hb - Home Meds: 07:59 None [Active]; hb - PMHx: 07:59 None; hb - PSHx: 07:59 None; hb - Immunization history:: Adult Immunizations up to date. - Social history:: Smoking status: Patient denies any tobacco usage or history of. - Family history:: not pertinent. - Hospitalizations: : No recent hospitalization is reported. ROS: 08:06 Constitutional: Negative for fever, chills, and weight loss, ENT: Positive for left ear rn pain and fullness Cardiovascular: Negative for chest pain, palpitations, and edema, Respiratory: Negative for shortness of breath, cough, wheezing, and pleuritic chest pain, Neuro: Negative for headache, weakness, numbness, tingling, and seizure, Exam: 08:06 Constitutional: This is a well developed, well nourished patient who is awake, alert, rn and in no acute distress. Head/Face: Normocephalic, atraumatic. ENT: Left ear canal with cerumen impaction. No swelling. No pain with manipulation. No tenderness over mastoid region. Neck: No lymphadenopathy noted. No swelling or crepitus. Submandibular region soft Vital Signs: 07:58 BP 129 / 84; Pulse 66; Resp 16; Temp 97.9(O); Pulse Ox 99% on R/A; Weight 68.04 kg; hb Height 5 ft. 9 in. ; Pain 6/10; 08:00 BP 131 / 97; Pulse 61; Resp 16; Pulse Ox 100% on R/A; db 07:58 Body Mass Index 22.15 (68.04 kg, 175.26 cm) hb 07:58 Pain Scale: Adult hb Procedures: 08:06 Performed Cerumen disimpaction . Cerumen disimpaction performed by me, using otoscope rn and soft curette. Removed a lot of dark cerumen. Tolerated well with some improvement in symptoms.. MDM: 07:53 Patient medically screened. rn 08:11 Differential diagnosis: otitis media, otitis externa, foreign body, acute otalgia, rn cerumen impaction, serotympanum. Data reviewed: vital signs, nurses notes, and as a result, I will discharge patient. Counseling: I had a detailed discussion with the patient and/or guardian regarding the historical points, exam findings, and any diagnostic results supporting the discharge/admit diagnosis, the need for outpatient follow up, to return to the emergency department if symptoms worsen or persist or if there are any questions or concerns that arise at home. Response to treatment: the patient's symptoms have mildly improved after treatment, and as a result, I will discharge patient. Special discussion: I discussed with the patient/guardian in detail that at this point there is no indication for admission to the hospital. It is understood, however, that if the symptoms persist or worsen the patient needs to return immediately for re-evaluation. ED course: Recommend Debrox solution for remaining cerumen removal. Even after cerumen disimpaction tympanic membrane not visualized. Given pain that radiates to the neck will DC home with antibiotics for possible infection on top of her cerumen impaction.. 02/06 08:04 Order name: Misc. Order: irrigate ear with several flushes; Complete Time: 08:15 rn Administered Medications: No medications were administered Disposition Summary: 02/06/23 08:12 Discharge Ordered Notes: Location: Home rn Problem: new rn Symptoms: have improved rn Condition: Stable rn Diagnosis - Otalgia, left ear rn - Impacted cerumen, left ear rn Followup: rn - With: Private Physician - When: As needed - Reason: Recheck today's complaints, Re-evaluation by your physician Discharge Instructions: - Discharge Summary Sheet rn - Earwax Buildup, Adult rn - Earache, Adult rn Forms: - Medication Reconciliation Form rn - Thank You Letter rn - Antibiotic rn radiation oncology - Prescription Opioid Use rn - Patient Portal Instructions rn - Leadership Thank You Letter rn Prescriptions: - Augmentin 875-125 mg Oral Tablet - take 1 tablet ORAL route every 12 hours for 10 days; 20 tablet; Refills: 0, rn Product Selection Permitted Signatures: Blaze Hogan MD MD rn Emi Corcoran RN RN
--- NOTE | 2023-02-06 08:13 | ER ---
Nurse's Notes [facility] Name: Isi Fry Age: 22 yrs Sex: Female : 2000 Arrival Date: 02/06/2023 Time: 07:50 Bed 14 Private MD: Diagnosis: Otalgia, left ear;Impacted cerumen, left ear Presentation: 02/06 07:58 Chief complaint: Left ear pain upon waking today. Coronavirus screen: At this time, the hb client does not indicate any symptoms associated with coronavirus-19. Ebola Screen: No symptoms or risks identified at this time. Initial Sepsis Screen: Does the patient meet any 2 criteria? No. Patient's initial sepsis screen is negative. Does the patient have a suspected source of infection? No. Patient's initial sepsis screen is negative. Risk Assessment: Do you want to hurt yourself or someone else? Patient reports no desire to harm self or others. Onset of symptoms was February 06, 2023. 07:58 Method Of Arrival: Ambulatory 07:58 Acuity: ANGELICA 4 hb Triage Assessment: 07:59 General: Appears in no apparent distress. Behavior is calm, cooperative. Pain: Pain hb currently is 6 out of 10 on a pain scale. EENT: Reports left ear pain. Neuro: Level of Consciousness is awake, alert, obeys commands, Oriented to person, place, time, situation. Cardiovascular: Patient's skin is warm and dry. Respiratory: Respiratory effort is even, unlabored, Respiratory pattern is regular, symmetrical. GI: No signs and/or symptoms were reported involving the gastrointestinal system. : No signs and/or symptoms were reported regarding the genitourinary system. Derm: Skin is pink, warm \T\ dry. Musculoskeletal: No signs and/or symptoms reported regarding the musculoskeletal system. Historical: - Allergies: 07:59 No Known Allergies; hb - Home Meds: 07:59 None [Active]; hb - PMHx: 07:59 None; hb - PSHx: 07:59 None; hb - Immunization history:: Adult Immunizations up to date. - Social history:: Smoking status: Patient denies any tobacco usage or history of. - Family history:: not pertinent. - Hospitalizations: : No recent hospitalization is reported. Screenin:00 [facility] ED Fall Risk Assessment (Adult) Score/Fall Risk Level 0 - 2 = Low Risk hb Oriented to surroundings, Maintained a safe environment. Abuse screen: Denies threats or abuse. Denies injuries from another. Nutritional screening: No deficits noted. Tuberculosis screening: No symptoms or risk factors identified. Assessment: 08:00 General: See triage assessment. hb 08:05 Reassessment: Patient appears in no apparent distress at this time. Patient and/or db family updated on plan of care and expected duration. Pain level reassessed. Patient is alert, oriented x 3, equal unlabored respirations, skin warm/dry/pink. General: Appears in no apparent distress. comfortable, Behavior is calm, cooperative. Neuro: Level of Consciousness is awake, alert, obeys commands, Oriented to person, place, time, situation. Respiratory: Airway is patent Respiratory effort is even, unlabored, Respiratory pattern is regular, symmetrical. EENT: Ear canal w/ drainage noted from left ear Reports pain in left ear. 08:15 Reassessment: Patient appears in no apparent distress at this time. PATIENT LEFT EAR db IRRIGATED. Vital Signs: 07:58 BP 129 / 84; Pulse 66; Resp 16; Temp 97.9(O); Pulse Ox 99% on R/A; Weight 68.04 kg; hb Height 5 ft. 9 in. ; Pain 6/10; 08:00 BP 131 / 97; Pulse 61; Resp 16; Pulse Ox 100% on R/A; db 07:58 Body Mass Index 22.15 (68.04 kg, 175.26 cm) hb 07:58 Pain Scale: Adult hb ED Course: 07:51 Patient arrived in ED. rg4 07:53 Blaze Hogan MD is Attending Physician. rn 07:59 Triage completed. hb 07:59 Arm band placed on. hb 08:00 Patient has correct armband on for positive identification. Provided Education on: . hb 08:00 Pulse ox on. NIBP on. db 08:03 Lisa Tatum, ROBERTO is Primary Nurse. db 08:23 Ear irrigation: Route left ear with Normal Saline amount 250ml Patient tolerated well. db 08:28 No provider procedures requiring assistance completed. Patient did not have IV access db during this emergency room visit. Administered Medications: No medications were administered Medication: 08:00 VIS not applicable for this client. hb Outcome: 08:12 Discharge ordered by . rn 08:28 Discharged to home ambulatory, db 08:28 Condition: stable 08:28 Discharge instructions given to patient, Instructed on discharge instructions, follow up and referral plans. Prescriptions given X 1, 08:31 Patient left the ED. db Signatures: Blaze Hogan MD MD rn Baxter, Heather, RN RN hb Garcia, Rubi rg4 Lisa Tatum RN RN db Corrections: (The following items were deleted from the chart) 08: 08:28 Ear irrigation: Route left ear with Normal Saline amount 250ml Patient tolerated db well db
[2023-02-06 08:47] VITALS: TEMP 97.9
[2023-02-06 08:49] VITALS: BP 131/97; O2SAT 100
== END 2023-02-06 08:31 | disposition home or self-care (01) ==
LOC: ER 07:50
PROC: 09C47ZZ Extirpation of Matter from Left External Auditory Canal, Via Natural or Artificial Opening (ICD-10-PCS; principal; 2023-02-06)
DX: H92.02 Otalgia, left ear (principal); H61.22 Impacted cerumen, left ear
CPT/HCPCS: 99283